=== PATIENT | male | born 2000 | race Two or more races ===

== ENCOUNTER 2024-08-04 08:50 | Emergency (ER) | payer MEDICAID, SELFPAY ==
[2024-08-04 08:52] VITALS: BMI 24.5
[2024-08-04 09:06] VITALS: BP 139/93; PULSE 90; RESP 18; TEMP 37; O2SAT 99
--- NOTE | 2024-08-04 09:13 | EDNOTE_ITS ---
Nausea/Vomit./Diarrhea-RME/HPI General Chief complaint: Nausea/Vomiting/Diarrhea Stated complaint: BLOODY DIARRHEA SINCE FRIDAY; SENT BY [facility] Time Seen by Provider: 08/04/24 08:58 Source: patient Arrival date/time: 08/04/24 08:50 24-year-old male with no known medical history presents to the emergency room with a chief complaint of blood in the stool x 3 days Mode of arrival: ambulatory Limitations: no limitations Related Data Previous Rx's ?Medication ?Instructions ?Recorded hydrocortisone 2.5 % topical cream 1 applic NJ QDAY NJ N hemorrhoids 08/04/24 with perineal applicator #30 grams (Anusol-HC) hydrocortisone acetate 25 mg 25 mg NJ BID #12 ea 08/04 rectal suppository (Anusol-HC) Allergies Allergy/AdvReac Type Severity Reaction Status Date / Time No Known Allergies Allergy Verified 08/04/24 08:54 Review of Systems Review of Systems Systems Reviewed: All systems reviewed, normal except as documented Constitutional Constitutional: Reports system reviewed and no additional complaints, except as documented, Denies fatigue, Denies fever(s), Denies headache(s) and Denies weakness Eyes Eyes: Reports system reviewed and no additional complaints, except as documented, Denies blurry vision and Denies change in vision ENT Ears, Nose, Mouth, and Throat: Reports system reviewed and no additional complaints, except as documented, Denies otalgia, Denies headache(s), Denies nasal congestion, Denies throat swelling and Denies vertigo Cardiovascular Cardiovascular: Reports system reviewed and no additional complaints, except as documented, Denies chest pain, Denies dyspnea and Denies dyspnea on exertion Respiratory Respiratory: Reports system reviewed and no additional complaints, except as documented, Denies chest congestion, Denies cough, Denies dyspnea, Denies dyspnea on exertion and Denies wheezing Gastrointestinal Gastrointestinal: Reports system reviewed and no additional complaints, except as documented, Denies abdominal pain, Reports cramping, Reports hematochezia, Reports loose stools, Reports nausea and Denies vomiting Genitourinary Genitourinary: Reports system reviewed and no additional complaints, except as documented, Denies dysuria and Denies hematuria Musculoskeletal Musculoskeletal: Reports system reviewed and no additional complaints, except as documented and Denies back pain Integumentary/Breasts Skin/Breast: Reports system reviewed and no additional complaints, except as documented and Denies wounds Neurologic Neurologic: Reports system reviewed and no additional complaints, except as documented, Denies confusion, Denies headache(s), Denies lack of coordination, Denies vertigo and Denies weakness Psychiatric Psychiatric: Reports system reviewed and no additional complaints, except as documented, Denies anxiety, Denies confusion, Denies depression, Denies paranoia, Denies suicidal ideation and Denies tactile hallucinations Endocrine Endocrine: Reports system reviewed and no additional complaints, except as documented and Denies fatigue Hematologic/Lymphatic Hematologic/Lymphatic: Reports system reviewed and no additional complaints, except as documented and Denies lymphadenopathy Allergic/Immunologic Allergic/Immunologic: Reports system reviewed and no additional complaints, except as documented, Denies throat swelling, Denies urticaria and Denies wheezing ED Exam General Limitations: Present no limitations General appearance: Present alert and in no apparent distress Head Head exam: Present atraumatic Eye Eye exam: Present normal appearance, PERRL and EOMI ENT ENT exam: Present normal exam, normal oropharynx and mucous membranes moist Neck Neck exam: Present normal inspection, full ROM and trachea midline Chest Chest inspection: Present normal inspection and symmetric chest wall rise Respiratory Respiratory exam: Present normal lung sounds bilaterally Cardiovascular Cardiovascular exam: Present regular rate, normal rhythm and normal heart sounds Abdominal Exam Abdominal exam: Present soft and normal bowel sounds Rectal Exam Rectal exam: Present bloody stool Extremities Exam Extremities exam: Present normal inspection and full ROM Back Exam Back exam: Present normal inspection and full ROM Neurological Exam Neurological exam: Present alert, oriented X3 and CN II-XII intact Psychiatric Psychiatric exam: Present normal affect and normal mood Skin Skin exam: Present warm, dry, intact and normal color Course Quality Measures none Orders Category Date Time Status CBC Stat Lab 08/04/24 09:25 Completed CMP [Comprehensive Metabolic Panel] Stat Lab 08/04/24 09:25 Completed PT [Prothrombin Time with INR] Stat Lab 08/04/24 09:25 Completed PTT [Partial Thromboplastin Time] Stat Lab 08/04/24 09:25 Completed Potassium Chloride [K-Dur] Med 08/04/24 11:06 Discontinued 40 meq PO X1 ONE Vital Signs Vital signs: Vital Signs Temperature 98.6 F 08/04/24 09:06 Pulse Rate 90 08/04/24 09:06 Respiratory Rate 18 08/04/24 09:06 Blood Pressure 139/93 H 08/04/24 09:06 Pulse Oximetry (%) 99 08/04/24 09:06 Oxygen Delivery Method Room Air 08/04/24 09:06 O2 saturation 99% within normal limits Nausea/Vomiting/Diarrhea MDM Narrative MDM Narrative:: 24-year-old male with no known medical history presents to the emergency room with a chief complaint of blood in the stool x 3 days Patient is hemodynamically stable and in no apparent distress Physical examination shows an external anal fissure. There is no signs of any hemorrhoids. CBC CMP were within normal limits Medication was sent to the patient's pharmacy patient was given education on helping him get rid of this anal fissure. I spoke to the patient and also told him there could be an underlying gastroenteritis that is making it difficult for his anal fissure to heal. Patient was given education and educated to follow-up with his primary care provider and return to the emergency room for any evidence of worsening signs or symptoms Patient data External records reviewed:: [facility] previous records Clinical information provided by:: patient Social determinants that could affect healthcare access:: none Patient has the following chronic illnesses:: No chronic illness How is presenting disease/condition affected by chronic disease/condition?: no chronic disease Evaluation data The following diagnostics were reviewed and interpreted by me:: lab results and radiology exam(s) Lab and/or radiology exams considered but not ordered:: Labs and radiology exams considered and ordered Interpretation Summary: N/A Medications / Prescriptions Medications / Prescriptions considered but not ordered:: No medication given Medication administrations:: Medication Administration History Discontinued Medications Potassium Chloride (Potassium Chloride 20 Meq Tabcr) 40 meq PO X1 ONE Stop: 08/04/24 11:07 Last Admin: 08/04/24 11:25 Dose: 40 meq Documented By: GUY No medication given Consultations Consultation(s) initiated? (list below): No Diagnosis Nausea Differential Diagnosis: traveler's diarrhea, food poisoning, gastroenteritis and dehydration Most likely diagnosis given after review of the tests above:: Anal fissure Admission Indicated Admission indicated?: not indicated Admission Request Was there a request for admission?: No Disposition Plan Disposition Plan: Discharge Discharge Attestation Discharge Attestation: The patient and all family members were given an opportunity to ask questions and understood the discharge instructions. Discharge instructions specifically effects, indications for sooner follow up or return to the emergency department, and the expected course of current diagnosis. Patient condition: Stable Discharge Plan Plan Patient Disposition: HOME (Self Care) Discharge Disposition comment: Stable Prescriptions/Referrals Prescriptions/Med Rec: New hydrocortisone acetate [Anusol-HC] 25 mg suppository 25 mg NJ BID Qty: 12 0RF hydrocortisone [Anusol-HC] 2.5 % cream with perineal applicator 1 applic NJ QDAY PRN (Reason: hemorrhoids) Qty: 30 0RF Referrals: Bruce Quintero MD [Primary Care Provider] - In 1 week Problem List Clinical Impression: Gastroenteritis, Acute anal fissure Patient/Caregiver Discharge Instructions Education Materials: ED Gastroenteritis, Noninfectious Additional Instructions: Please follow-up with your primary care provider in the next 24 to 48 hours Your physical examination showed an anal fissure. Medication was sent to your pharmacy to help this heal. Using wipes instead of toilet paper can also help with the symptoms. If your signs and symptoms continue please follow-up with your primary care provider as a referral to a heel emery buffer may be indicated For any evidence of worsening signs or symptoms return to the emergency room imm ediately Print Language: Stateless Stand Alone Forms: Sigrid Award Info., Work/School Release, Patient Portal Info Letter PA/[employer]OWN[employer] PROGRAM COORDINATOR Supervising Physician PA/[employer] PROGRAM COORDINATOR Supervising Physician: Dr. Cadet
[2024-08-04 09:58] LABS: Basophils # (Auto) 0.1 Thou/mm3 (0.0-0.2); Basophils % (Auto) 1 % (0-2.5); Eosinophils # (Auto) 0.1 Thou/mm3 (0.0-0.5); Eosinophils % (Auto) 1 % (0-10); Hematocrit 38.2 % (41.0-53.0); Immature Granulocytes % (Auto) 1 % (0-0); Immature Granulocytes Auto 0.06 Thou/mm3 (0.00-0.00); Lymphocytes # (Auto) 1.6 Thou/mm3 (1.0-4.8); Lymphocytes % (Auto) 14 % (10-50); Mean Corpuscular HGB Conc 36.6 g/dl (31.0-37.0); Mean Corpuscular Hemoglobin 30.9 pg (25.0-35.0); Mean Corpuscular Volume 84 fL (80-100); Monocytes # (Auto) 1.3 Thou/mm3 (0.0-0.8); Monocytes % (Auto) 12 % (0-12); Neutrophils % (Auto) 73 % (37-80); Nucleated Red Blood Cell % 0 /100 WBC (0); Platelet Count 330 Thou/mm3 (140-440); RDW Standard Deviation 46.2 fL (35.1-43.9); Red Blood Count 4.53 Miln/mm3 (4.50-5.90)
[2024-08-04 10:14] LABS: Alanine Aminotransferase 31 U/L (10-49); Albumin, Serum 4.5 gm/dL (3.5-5.0); Albumin/Globulin Ratio 1.7 (1.2-2.2); Alkaline Phosphatase 59 U/L (46-116); Anion Gap 15 (7-16); BUN/Creatinine Ratio 10 Ratio (12-20); Bilirubin,Total 0.7 mg/dL (0.3-1.2); Blood Urea Nitrogen 10 mg/dL (9-23); Calcium 9.4 mg/dL (8.3-10.6); Calcium (Corrected) 9.4 mg/dL (8.5-10.1); Carbon Dioxide 26.2 mMol/L (20.0-31.0); Chloride 100 mMol/L (98-107); Estimated Creatinine Clearance 114.9 mL/min (>60); Globulin 2.6 gm/dL (2.3-3.5); Glucose 126 mg/dL (74-106); Osmolality,Calculated 282 (275-295); Sodium 141 mMol/L (136-145); Total Protein 7.1 gm/dL (5.7-8.2); eGFR > 60 See Note
[2024-08-04 11:01] LABS: Partial Thromboplastin Time 27.8 Seconds (22.0-36.0); Prothrombin Time 11.4 Seconds (9.0-12.2)
[2024-08-04] MEDS: POTASSIUM CHLORIDE 20 mEq TABCR 40 MEQ PO (11:25)
[2024-08-04 11:49] VITALS: BP 134/70; PULSE 78; RESP 18; TEMP 36.8; O2SAT 99
== END 2024-08-04 11:50 | disposition home or self-care (01) ==
PROVIDERS: Nurse Practitioner Family; Emergency Provider Emergency Medicine; PCP Family Medicine
DX: K52.9 Noninfective gastroenteritis and colitis, unspecified (principal); K60.0 Acute anal fissure
CPT/HCPCS: 36415; 80053; 81001; 85025; 85610; 85730; 99283; A9270